=== PATIENT | female | born 1970 | race Caucasian/White ===

== ENCOUNTER 2016-05-04 07:28 | Emergency (ER) | payer OTHER ==
[2016-05-04 07:58] VITALS: BP 127/80
--- NOTE | 2016-05-04 08:08 | UC ---
Back Pain HPI - HPI Summary HPI Summary: left lower back pain for the past few days. No known injury. Does stand a lot at work, and several days ago she noted onset of mild discomfort while she was standing. Gradually worsened through the weekend until it got to the point that she was having pain even when seated. Pain is in buttock area on left. No radiation down leg, no numbness or tingling in leg. Taking one aspirin for pain , not helpful. Did have sciatica once in past, felt a bit different because it went down the back of her leg. - History of Current Complaint Chief Complaint: UCLowerExtremity Stated Complaint: BACK PAIN Time Seen by Provider: 05/04/16 07:47 Hx Obtained From: Patient Hx Last Menstrual Period: 5 yrs Onset/Duration: Gradual Onset, Lasting Days - 4 Timing: Constant Severity Initially: Mild Severity Currently: Moderate Back Pain: Is Discrete @ - left upper buttock Character: Sharp, Aching, Stiffness Aggravating: Movement, Bending, Walking Alleviating: Nothing Associated Signs And Symptoms: Positive: Pain with Weight Bearing. Negative: Swelling, Redness, Bruising, Fever, Weakness, Numbness, Tingling, Abdominal Pain , Flank Pain, Bladder Incontinence, Bowel Incontinence, Weight Loss - Risk Factors AAA Risk Factors: Negative TAD Risk Factors: Negative Cauda Equina Risk Factors: Negative Epidural Abscess Risk Factors: Negative - Allergies/Home Medications Allergies/Adverse Reactions: Allergies Allergy/AdvReac Type Severity Reaction Status Date / Time Amoxicillin AdvReac yeast Verified 05/04/16 07:41 infection Home Medications: Home Medications Acetaminophen-Aspirin Buffered [Excedrin Back & Body] 2 tab PO ONCE PRN [History Confirmed 05/04/16] PMH/Surg Hx/FS Hx/Imm Hx Endocrine History Of: Denies: Diabetes, Thyroid Disease Cardiovascular History Of: Denies: Cardiac Disorders, Hypertension Respiratory History Of: Reports: Asthma - Surgical History Surgical History: Yes Surgery Procedure, Year, and Place: knee surgery. ankle surgery - Family History Known Family History: Positive: Hypertension Negative: Diabetes - Social History Occupation: Employed Full-time - [employer] Alcohol Use: None Substance Use Type: None Smoking Status (MU): Never Smoked Tobacco - Immunization History Most Recent Influenza Vaccination: none Review of Systems Constitutional: Negative Skin: Negative Eyes: Negative ENT: Negative Respiratory: Negative Cardiovascular: Negative Gastrointestinal: Negative Genitourinary: Negative Motor: Negative Neurovascular: Negative Musculoskeletal: Decreased ROM, Myalgia Neurological: Negative Psychological: Negative All Other Systems Reviewed And Are Negative: Yes Physical Exam Triage Information Reviewed: Yes Appearance: Well-Appearing, No Pain Distress, Well-Nourished Vital Signs: Initial Vital Signs Temp 97.6 F 05/04/16 07:34 Pulse 84 05/04/16 07:34 Resp 20 05/04/16 07:34 BP 127/80 05/04/16 07:34 Pulse Ox 99 05/04/16 07:34 Vital Signs Reviewed: Yes Eye Exam: Normal ENT Exam: Normal Neck exam: Normal Respiratory Exam: Normal Cardiovascular Exam: Normal Musculoskeletal Exam: Normal Neurological Exam: Normal Psychological Exam: Normal Skin Exam: Normal Back Pain Course/Dx - Differential Dx/Diagnosis Provider Diagnoses: low back strain Discharge - Discharge Plan Condition: Stable Disposition: HOME Prescriptions: Cyclobenzaprine TAB* [Flexeril TAB*] 10 mg PO TID PRN #30 tab PRN Reason: muscle spasm Hydrocodone-Acetaminophen [Hydrocodone/Acetaminophen 5-325 mg] 1 - 2 tab PO Q6HR PRN #20 tab MDD 6 tab PRN Reason: Pain Patient Education Materials: Low Back Strain (ED), Lower Back Exercises (ED) Forms: *Work Release Referrals: Tejas York [place] [Doctor of Chiropractic] - No Primary Care Phys,NOPCP [Primary Care Provider] -
== END 2016-05-04 08:06 | disposition home or self-care (01) ==
LOC: UCCORT 07:28
DX: S39.012A Strain of muscle, fascia and tendon of lower back, initial encounter (principal); X58.XXXA Exposure to other specified factors, initial encounter; Y93.9 Activity, unspecified; Y92.9 Unspecified place or not applicable; Z88.0 Allergy status to penicillin
CPT/HCPCS: 99212; G0463

== ENCOUNTER 2017-12-27 09:08 | Emergency (ER) | payer BC, OTHER ==
[2017-12-27 10:35] VITALS: BP 137/86
--- NOTE | 2017-12-27 11:03 | UC ---
Abdominal Pain Female HPI - HPI Summary HPI Summary: The patient is a 47-year-old female with lower quadrant abdominal pain 1 week. She'll he her pain was intermittent. She states that the pain has become constant now. She is currently anorexic. Her pain is worse with movement. She has dysuria. Denies any vaginal discharge or itching. She has had no fever or chills. He states that the caliber of her stool has decreased since the onset of her symptoms. - History of Current Complaint Chief Complaint: UCGI Stated Complaint: UPSET STOMACH Time Seen by Provider: 12/27/17 10:53 Hx Obtained From: Patient Hx Last Menstrual Period: "Don't know ... skip sugar pills." Onset/Duration: Gradual Onset, Lasting Days Timing: Constant Severity Initially: Mild Severity Currently: Severe Pain Intensity: 8 Pain Scale Used: 0-10 Numeric Location: Discrete At: RLQ, Discrete At: LLQ, Suprapubic Radiates: No Character: Aching, Colicy, Cramping Aggravating Factor(s): Movement Alleviating Factor(s): Nothing Associated Signs and Symptoms: Positive: Urinary Symptoms - dysuria. Negative: Diaphoresis, Fever, Cough, Chest Pain, Dizzy, Back Pain, Constipation, Blood in Stool, Nausea, Vomiting, Diarrhea Allergies/Adverse Reactions: Allergies Allergy/AdvReac Type Severity Reaction Status Date / Time amoxicillin AdvReac Mild Yeast Verified 12/27/17 10:28 infection Home Medications: Home Medications Albuterol HFA INHALER* [Ventolin HFA Inhaler*] 1 - 2 puff INH Q4H PRN 12/27/17 [ History Confirmed 12/27/17] Norgestrel-Ethinyl Estradiol [[place]-28] 1 tab PO DAILY 12/27/17 [History Confirmed 12/27/17] PMH/Surg Hx/FS Hx/Imm Hx Previously Healthy: Yes - Surgical History Surgical History: Yes Surgery Procedure, Year, and Place: Right Fifth Metatarsal Pin s/p Fracture, ~ 1997, [place]; Left Knee Patellar Tendon Repair, ~1987, [place] - Family History Known Family History: Positive: Hypertension Negative: Diabetes - Social History Alcohol Use: None Substance Use Type: None Smoking Status (MU): Never Smoked Tobacco - Immunization History Most Recent Influenza Vaccination: none Review of Systems Constitutional: Negative Skin: Negative Eyes: Negative ENT: Negative Respiratory: Negative Cardiovascular: Negative Gastrointestinal: Abdominal Pain, Other - anorexia Genitourinary: Dysuria Motor: Negative Neurovascular: Negative Musculoskeletal: Negative Neurological: Negative Psychological: Negative All Other Systems Reviewed And Are Negative: Yes Physical Exam Triage Information Reviewed: Yes Appearance: Well-Appearing, No Pain Distress, Well-Nourished Vital Signs: Initial Vital Signs Temp 98.4 F 12/27/17 10:25 Pulse 80 12/27/17 10:25 Resp 20 12/27/17 10:25 BP 137/86 12/27/17 10:25 Pulse Ox 98 12/27/17 10:25 Vital Signs Reviewed: Yes Eyes: Positive: Conjunctiva Clear ENT: Positive: Hearing grossly normal. Negative: Nasal congestion, Nasal drainage, Trismus, Muffled voice, Hoarse voice Neck: Positive: Nontender, No Lymphadenopathy Respiratory: Positive: Lungs clear, Normal breath sounds, No respiratory distress, No accessory muscle use Cardiovascular: Positive: RRR, No Murmur Abdomen Description: Negative: Nontender - L>R lower abd pain, No Organomegaly, CVA Tenderness (R), CVA Tenderness (L) Bowel Sounds: Positive: Present Musculoskeletal: Positive: ROM Intact, No Edema Neurological: Positive: Alert Psychological Exam: Normal Diagnostics - Laboratory Diagnostic Studies Completed/Ordered: UA tr leuks, +bili Abd Pain Female Course/Dx - Course Course Of Treatment: I called [facility] ER. No providers available to give report to. Report given to RN - Differential Dx/Diagnosis Provider Diagnoses: abdominal pain of uncertain cause Discharge - Sign-Out/Discharge Documenting (check all that apply): Patient Departure All imaging exams completed and their final reports reviewed: No Studies - Discharge Plan Condition: Stable Disposition: TRANS [facility] Referrals: Rm MARQUES,Gail Mcgovern [Primary Care Provider] - Additional Instructions: I suggest you go straight to the ER for evaluation of your pain Don't eat or drink prior to arrival - Billing Disposition and Condition Condition: STABLE Disposition: Trans Higher l of Care Fac
--- NOTE | 2017-12-29 11:21 | UC ---
- Progress Note Progress Note: urine, no growth no change [facility] 12/29 Discharge - Sign-Out/Discharge Documenting (check all that apply): Post-Discharge Follow Up All imaging exams completed and their final reports reviewed: No Studies - Discharge Plan Condition: Stable Disposition: TRANS HIGHER LVL OF CARE FAC Referrals: Rm MARQUES,Gail Mcgovern [Primary Care Provider] - Additional Instructions: I suggest you go straight to the ER for evaluation of your pain Don't eat or drink prior to arrival - Billing Disposition and Condition Condition: STABLE Disposition: Trans Higher Lvl of Care Fac
== END 2017-12-27 11:11 | disposition short-term general hospital (02) ==
LOC: UCCORT 09:08
DX: R10.30 Lower abdominal pain, unspecified (principal); Z88.0 Allergy status to penicillin
CPT/HCPCS: 81003; 84702; 87086; 99212; G0463